=== PATIENT | male | born 1990 | race Caucasian/White ===

== ENCOUNTER 2017-06-25 19:55 | Emergency (ER) | payer OTHER ==
[~2017-06-25] VITALS: Ht 188 cm; Wt 79.1 kg
[2017-06-25 21:19] VITALS: BP 128/84
== END 2017-06-25 21:20 | disposition home or self-care (01) ==
LOC: EDBD 19:55 → EXP 19:55 → EME 19:55 → EXP 19:55
PROC: 0HQ1XZZ Repair Face Skin, External Approach (ICD-10-PCS; principal; 2017-06-25)
DX: S01.81XA Laceration without foreign body of other part of head, initial encounter (principal); W20.8XXA Other cause of strike by thrown, projected or falling object, initial encounter; Y92.63 Factory as the place of occurrence of the external cause; Y99.0 Civilian activity done for income or pay; F17.200 Nicotine dependence, unspecified, uncomplicated
CPT/HCPCS: 99281; 99284